=== PATIENT | male | born 1955 | race Caucasian/White ===

== ENCOUNTER 2020-12-05 16:49 | Inpatient (IN) | payer BC, SELFPAY ==
[2020-12-05 16:50] VITALS: BP 144/95; PULSE 88; RESP 18; TEMP 36.6; O2SAT 98; BMI 20.9
--- NOTE | 2020-12-05 18:11 | CM.ED ---
SOCIAL WORK Referral Source: Dr. Blily Reason for Consult: Substance abuse-requesting detox from suboxone, xanax, and ambien. Dr. Billy reports hospitalist reported unable to admit patient to [facility] as unable to detox patient from suboxone and xanax. Informed [facility] is able to detox from benzodiazepines. This worker called and confirmed with Amelia Jang and Treatment Navigator. Dr. Billy to discuss with hospitalist. Shobha Treatment Navigator updated on patient. Plan: Anticipate admission to [facility] Myrna Bob DIRECTOR SPEECH AND HEARING, CUSTOMS COMPLIANCE MANAGER
--- NOTE | 2020-12-05 18:31 | EDS_ITS ---
HPI History of Present Illness Chief Complaint: Substance Abuse Informant: patient and spouse/S.O. Narrative Narrative: Patient presents with requesting detox assistance. He has been trying to taper himself off of Suboxone. He also uses Xanax and Ambien. Nicholas cardona states he wants help with stopping all of these medications. He has been through detox multiple times in the past, most recent being 3 years ago. states that patient came home from work yesterday and went to bed with his suit still on from work. He did not get up all day today and missed work. When she got home this afternoon he was having visual hallucinations. He does seem to be improved now and is in agreement that he needs to get help and wants to get off of these medications. [facility] Medical History HTN (hypertension) Hypothyroid Opiate addiction Seizure Allergy/AdvReac Type Severity Reaction Status Date / Time No Known Allergies Allergy Verified 12/05/20 18:05 Surgical History (Updated 12/05/20 @ 18:03 by Daniel Bustos) History of appendectomy Social History Smoking Status: Unknown if ever smoked ROS ROS ED Constitutional Constitutional ED: Denies chills or fever(s) Eyes Eyes: Denies change in vision ENT ENT ED: Denies sore throat Cardiovascular Cardiovascular: Denies chest pain Respiratory/Chest Respiratory/Chest: Denies cough or dyspnea Gastrointestinal Gastrointestinal: Denies abdominal pain, diarrhea, nausea or vomiting Genitourinary Genitourinary ED: Denies dysuria Musculoskeletal Musculoskeletal: Denies back pain Integumentary Denies rash Neurologic Neurologic: Denies headache(s) or weakness Psychiatric Psychiatric: Reports anxiety; Denies depression Allergic/Immunologic Allergic/Immunologic ED: Denies urticaria EXAM Physical Exam Const Vital Signs: 12/05/20 16:50 Temperature 98 F Temperature Source Temporal Pulse Rate 88 Respiratory Rate 18 Blood Pressure 144/95 H Blood Pressure Mean 111 Pulse Ox 98 Oxygen Delivery Method Room Air Positive well nourished and well developed General Appearance ED: well developed HEENT Reports normocephalic and head/scalp atraumatic Eyes PERRL and EOMs intact bilaterally Neck supple Chest Wall inspection of chest normal and palpation of chest normal Resp normal respiratory effort and clear to auscultation bilaterally Cardio regular rate and regular rhythm GI normal to inspection, nondistended, normoactive bowel sounds Palpation: soft Back/Spine no CVA tenderness Extremity normal to inspection Neuro oriented x3 and no sensory deficits noted Sensorium / Orientation: alert Motor Exam: strength 5/5 throughout Psych mental status grossly normal Skin no rashes or lesions noted MDM MDM MDM Narrative Medical decision making narrative: Labs for AT addiction medicine are ordered. Lab Data Attestation: I reviewed the patient's lab results. Labs: Laboratory Results - last 24 hr 12/05/20 12/05/20 12/05/20 18:30 18:45 18:45 WBC 8.6 RBC 4.76 Hgb 14.2 Hct 42.8 MCV 89.9 MCH 29.8 MCHC 33.2 RDW Std Deviation 41.6 RDW Coeff of Victor Manuel 12.6 Plt Count 296 MPV 9.1 Immature Gran % (Auto) 0.400 Neut % (Auto) 70.7 H Lymph % (Auto) 17.9 L Whitley % (Auto) 10.3 H Eos % (Auto) 0.2 Baso % (Auto) 0.5 Absolute Neuts (auto) 6.1 Absolute Lymphs (auto) 1.53 Nucleated RBC % 0 Sodium 140 Potassium 3.5 Chloride 105 Carbon Dioxide 27.0 Anion Gap 8 BUN 11 Creatinine 1.06 Estim Creat Clear Calc 67.75 Est GFR (MDRD) Af Amer 90 Est GFR (MDRD) Non-Af 75 BUN/Creatinine Ratio 10.4 Glucose 96 Calcium 8.7 Total Bilirubin 0.50 AST 55 H ALT 20 Alkaline Phosphatase 179 H Total Protein 8.8 H Albumin 3.4 Globulin 5.4 H Albumin/Globulin Ratio 0.6 L Phenytoin 6.2 L Ethyl Alcohol 12/05/20 18:45 WBC RBC Hgb Hct MCV MCH MCHC RDW Std Deviation RDW Coeff of Victor Manuel Plt Count MPV Immature Gran % (Auto) Neut % (Auto) Lymph % (Auto) [place] % (Auto) Eos % (Auto) Baso % (Auto) Absolute Neuts (auto) Absolute Lymphs (auto) Nucleated RBC % Sodium Potassium Chloride Carbon Dioxide Anion Gap BUN Creatinine Estim Creat Clear Calc Est GFR (MDRD) Af Amer Est GFR (MDRD) Non-Af BUN/Creatinine Ratio Glucose Calcium Total Bilirubin AST ALT Alkaline Phosphatase Total Protein Albumin Globulin Albumin/Globulin Ratio Phenytoin Ethyl Alcohol 3.0 Treatment and Re-Evaluation Comments:: Lab work is largely unremarkable. Phenytoin level is low. Urine tox screen is still pending. I spoke with social work who confirmed with 180 as well as hospital administration that we were able to treat benzodiazepine withdrawal here as well as Suboxone detox. I will speak with the hospitalist. Discharge Plan Triage Chief Complaint: Substance Abuse ED Provider: Grace Billy Dx/Rx/DC Orders Clinical Impression: Desire for detoxification Primary Care Provider: Care Physician,No Primary Referrals: Care Physician,No Primary [Primary Care Provider] - Disposition Disposition: Acute Care Hospital [facility]
[2020-12-05 19:10] LABS: Absolute Lymphocyte Count 1.53 X10^3/uL (0.83-4.51); Absolute Neutrophil Count 6.1 X10^3/uL (2.0-7.7); Basophil# 0.04 X10^3/uL; Basophil% 0.5 % (0-1); Eosinophil# 0.02 X10^3/uL; Eosinophils% 0.2 % (0-5); Hematocrit 42.8 % (40-54); Hemoglobin 14.2 g/dL (13.0-16.5); Lymphocyte # 1.53 X10^3/ul (0.83-4.51); Lymphocyte % 17.9 % (19-41); Mean Corp Hgb Conc 33.2 g/dL (32-36); Mean Corpuscular Hgb 29.8 pg (27.0-32.0); Mean Corpuscular Volume 89.9 fL (80-94); Mean Platelet Vol. 9.1 fl (6.2-12.0); Monocyte# 0.88 X10^3/uL; Monocyte% 10.3 % (0-10); NRBC Flagged by Analyzer 0 % (0-5); Neutrophil # 6.05 X10^3/uL (2.7-7.7); Neutrophil % 70.7 % (47-70); Platelet Count 296 K/mm3 (150-450); RBC Distribution Width CV 12.6 % (11.6-14.6); RBC Distribution Width SD 41.6 fl (35.1-43.9); Red Blood Count 4.76 M/mm3 (4.6-6.2); White Blood Count 8.6 K/mm3 (4.4-11.0)
[2020-12-05 19:57] LABS: Phenytoin (Dilantin) Level 6.2 mL (10.0-20.0)
[2020-12-05 19:58] LABS: ALB/GLOB Ratio 0.6 RATIO (0.9-2.4); AST(SGOT) 55 U/L (15-37); Alanine Aminotransfer ALT/SGPT 20 U/L (16-61); Albumin, Serum 3.4 g/dL (3.2-5.0); Alkaline Phosphatase 179 U/L (45-117); Anion Gap 8 (5-15); BUN 11 mg/dL (7-18); BUN/Creat Ratio 10.4 RATIO (10-20); Calcium,Total 8.7 mg/dL (8.5-10.1); Chloride 105 mmol/L (98-107); Creatinine, Serum 1.06 mg/dL (0.70-1.30); EST Glomerular Filtration Rate 75 mL/min (>60); Est Glom Filt Rate - Afr Amer 90 mL/min (>60); Estimated Creatinine Clearance 67.75 ml/min; Globulin 5.4 g/dL (2.2-4.2); Glucose 96 mg/dL (74-106); Potassium 3.5 mmol/L (3.5-5.1); Protein, Total 8.8 g/dL (6.4-8.2); Sodium Level 140 mmol/L (136-145)
--- NOTE | 2020-12-05 20:42 | HP.PCM.HOS_ITS ---
HPI - General General Date of Admission: 12/05/20 Date of Service: 12/05/20 Chief Complaint: Desire for detoxification HPI Narrative SASHA MANCERA, is a 65 M with a significant history of polysubstance abuse who presents to the emergency department for help with drug detoxification. Patient reports that he snorts 2 mg of Suboxone twice a day; 2 mg of Xanax twice a day and 2 mg of Ambien twice a day. Last time he used this drug was on the morning of the day of presentation. Patient reported to emergency department in the evening of the day of presentation. Patient reports withdrawal symptoms of visual hallucination. Patient reported that he has been using each drug above for at least 10 years. [facility] Medical History HTN (hypertension) Hypothyroid Opiate addiction Seizure Allergy/AdvReac Type Severity Reaction Status Date / Time No Known Allergies Allergy Verified 12/05/20 18:05 Family History other other (Denies any maternal or paternal medical history) Surgical History (Updated 12/05/20 @ 18:03 by Daniel Bustos) History of appendectomy Surgical History unable to obtain unable to obtain (Patient states he has had some surgeries but is unable to recollect what kind of surgery he had.) Social History Smoking Status: Never smoker ROS ROS Narrative Constitutional: Denies fever, chills, fatigue, anorexia and change in weight Eyes: Denies blurry vision, change in eye color, change in vision, discharge from eye(s), double vision, erythema, eye pain, loss of vision or other HEENT: Denies abnormal hearing, dysphagia, ear pain, epistaxis, headache(s), hearing loss, nasal congestion, nasal discharge, post nasal drip, sinus pressure, sore throat or other Cardiovascular: Denies chest pain or palpitations. Denies dyspnea on exertion, orthopnea and paroxysmal nocturnal dyspnea Respiratory/Chest: Denies cough, excessive phlegm production, shortness of breath with exertion and wheezing Gastrointestinal: Denies abdominal pain, coffee ground emesis, constipation, diarrhea, dyspepsia, hematemesis, hematochezia, loose stools, melena, nausea, vomiting or other Genitourinary: Denies burning urination, difficulty urinating, dysuria, hematuria, nocturia, urinary frequency, urinary hesitancy, urinary incontinence, urinary urgency or other Musculoskeletal: Denies arthralgias, back pain, joint pain, joint stiffness, joint swelling, myalgias, neck pain or other Neurologic: Denies abnormal gait, abnormal speech, confusion, disequilibrium, dizziness, focal weakness, headache(s), numbness, paresthesias, seizure-like activity, seizures, syncope, tingling, tremor(s) or other Psychiatric: Denies anxiety, depression, homicidal ideation, suicidal ideation or other Endocrinology: Denies change in body appearance, cold intolerance, excessive sweating, heat intolerance, polydipsia, polyuria or other Hematologic/Lymphatic: Denies anemia, easy bleeding, easy bruising, lymphadenopathy or other Integumentary: Denies rashes Allergic/Immunologic: Denies rhinitis, hives, eczema, asthma or other Vital Signs Vital Signs Vital Signs: 12/05/20 16:50 Temperature 98 F Temperature Source Temporal Pulse Rate 88 Respiratory Rate 18 Blood Pressure 144/95 H Blood Pressure Mean 111 Pulse Ox 98 Oxygen Delivery Method Room Air Weight Weight: 68.039 kg Body Mass Index (BMI) 20.9 Physical Exam Narrative Physical exam: General: Well-nourished, well-developed. Head: Normocephalic, atraumatic, no tenderness Eyes: PERRLA, EOMI ENT, no trauma, moist mucous membranes, no rhinorrhea Neck: Nontender, full range of motion, no spinal tenderness, deformities, step- off CVS: Regular rate and rhythm. S1-S2 present. No murmur, gallop or rub. Respiratory : clear to auscultation bilaterally, chest wall nontender, no wheezing Abdomen: Soft, nontender, nondistended, normal bowel sounds, no masses : Deferred Back: Nontender, no CVA tenderness, no midline spinal tenderness, deformities, step-offs Extremities: Nontender full range of motion, no trauma Skin: Normal color, no trauma, abrasions Neuro: Alert, oriented, cranial nerves II through XII grossly intact. Psychiatry: Normal mood. Normal affect. Not depressed. Not anxious. Results Lab / Micro Data Result Diagrams: 12/05/20 18:45 12/05/20 18:45 Labs: Laboratory Results - last 24 hr 12/05/20 18:30: Phenytoin 6.2 L 12/05/20 18:45: WBC 8.6, RBC 4.76, Hgb 14.2, Hct 42.8, MCV 89.9, MCH 29.8, MCHC 33.2, RDW Std Deviation 41.6, RDW Coeff of Victor Manuel 12.6, Plt Count 296, MPV 9.1, Immature Gran % (Auto) 0.400, Neut % (Auto) 70.7 H, Lymph % (Auto) 17.9 L, [place] % (Auto) 10.3 H, Eos % (Auto) 0.2, Baso % (Auto) 0.5, Absolute Neuts (auto) 6.1, Absolute Lymphs (auto) 1.53, Nucleated RBC % 0 12/05/20 18:45: Sodium 140, Potassium 3.5, Chloride 105, Carbon Dioxide 27.0, Anion Gap 8, BUN 11, Creatinine 1.06, Estim Creat Clear Calc 67.75, Est GFR (MDRD) Af Amer 90, Est GFR (MDRD) Non-Af 75, BUN/Creatinine Ratio 10.4, Glucose 96, Calcium 8.7, Total Bilirubin 0.50, AST 55 H, ALT 20, Alkaline Phosphatase 179 H, Total Protein 8.8 H, Albumin 3.4, Globulin 5.4 H, Albumin/Globulin Ratio 0.6 L 12/05/20 18:45: Ethyl Alcohol 3.0 Assessment & Plan Assessment/Plan (1) Desire for detoxification: PLAN: Desire for detoxification Patient reports taking Subutex 2 mg twice a day; Xanax 2 mg twice a day and Ambien 2 mg twice a day. Doubts whether this is indeed the dosages he takes. Assuming patient is reporting accurately we will go of Subutex protocol and benzo protocol currently being used at a hospital and will start patient on Subutex 1 mg every 8 hours and Xanax 1 mg every 8 hours. Consider tapering as needed. Patient be started on Subutex and other adjunctive medications: Gabapentin as needed; dicyclomine as needed; Vistaril as needed; methocarbamol as needed; clonidine as needed; Imodium as needed; trazodone as needed and Zofran as needed. Monitor COWS and CINA score DVT prophylaxis Low risk Encourage to ambulate Charges/Coding Visit Charges Inpatient E&M: 89749 Init Hosp L2
[2020-12-05 21:02] VITALS: BP 144/95; PULSE 88; RESP 18; TEMP 36.6; O2SAT 98
[2020-12-05 21:03] VITALS: BP 147/99; PULSE 73; RESP 16; TEMP 36.6; O2SAT 99
[2020-12-05 21:37] VITALS: BMI 19.2
[2020-12-05 21:38] VITALS: BP 155/99; PULSE 66; RESP 16; TEMP 37.1; O2SAT 98
[2020-12-05 22:56] VITALS: BP 144/78; PULSE 77; RESP 18; TEMP 37.2; O2SAT 99
[2020-12-05] MEDS: ALPRAZolam 0.5 MG Tablet 1 MG PO (23:00)
[2020-12-05] MEDS: Buprenorphine HCl 2 MG TAB.SUBL 1 MG SL (23:00)
[2020-12-06] VITALS (25 sets, daily range): BP systolic 79–141; BP diastolic 57–91; PULSE 52–81; RESP 11–18; TEMP 36.4–37.2; O2SAT 94–100
[2020-12-06 03:02] LABS: Amphetamine Urine VISTA NEGATIVE (<1000 ng/mL); Barbiturate Urine VISTA NEGATIVE (< 200 ng/mL); Benzodiazepine Urine VISTA POSITIVE (< 200 ng/mL); Cocaine Urine VISTA NEGATIVE (< 300 ng/mL); Ecstacy Urine VISTA NEGATIVE (< 500 ng/mL); Methadone Urine VISTA NEGATIVE (< 300 ng/mL); PCP Urine VISTA NEGATIVE (< 25 ng/mL); THC Urine VISTA NEGATIVE (< 50 ng/mL); Vista UDS pH Range 7
[2020-12-06] MEDS: traZODone 100 MG Tablet PO ×2 (03:52→21:32)
[2020-12-06] MEDS: Levothyroxine 100 MCG Tablet PO (06:32)
[2020-12-06] MEDS: ALPRAZolam 0.5 MG Tablet 1 MG PO (06:32)
[2020-12-06] MEDS: Buprenorphine HCl 2 MG TAB.SUBL 1 MG SL (06:32)
[2020-12-06] MEDS: 0.9% Saline Lock 10 ML Syringe IV ×4 (06:42→15:51)
[2020-12-06] MEDS: Phenytoin Na 100 MG Capsule PO ×4 (08:28→21:31)
--- NOTE | 2020-12-06 08:40 | PCM.PN.HOSP ---
Subjective Subjective Follow-up on acute benzodiazepine withdrawal: 65-year-old male with past medical history of polysubstance abuse; patient admits to taking Suboxone, Xanax and Ambien. Patient was admitted last night with symptoms suggestive of benzodiazepine withdrawal. Patient's admission was reportedly approved by 180 as well as hospital administration without a discussion and approval from hospital medicine team. Patient was also started on Subutex 1 mg 3 times daily as well as Xanax 1 mg 3 times daily. Overnight, patient CIWA was elevated at 31 despite the above. Patient at that time told the nursing team that he lied to the ED and he takes about 10-12 mg of Xanax a day. He could not tell how much Ambien or Xanax he takes. He stated that he takes anything he can get to dull his mind. At the time of being seen, he admits to feeling foggy. He was transferred to ICU for closer monitoring Objective Data Objective Data Vital Signs: Vital Signs Temp Pulse Resp BP Pulse Ox 98.2 F 81 18 91/72 97 12/06/20 08:25 12/06/20 08:25 12/06/20 08:25 12/06/20 08:25 12/06/20 08:25 Oxygen Delivery Method Room Air Weight: 64.4 kg Body Mass Index (BMI) 19.2 Intake & Output: Intake and Output for Last 24 Hours 12/04/20 12/05/20 12/06/20 23:59 23:59 23:59 Intake Total 300 / 300 Output Total 200 / 200 Balance 100 / 100 Lab / Micro Data Result Diagrams: 12/05/20 18:45 12/05/20 18:45 Labs: Laboratory Results - last 24 hr 12/05/20 18:30: Phenytoin 6.2 L 12/05/20 18:45: WBC 8.6, RBC 4.76, Hgb 14.2, Hct 42.8, MCV 89.9, MCH 29.8, MCHC 33.2, RDW Std Deviation 41.6, RDW Coeff of Victor Manuel 12.6, Plt Count 296, MPV 9.1, Immature Gran % (Auto) 0.400, Neut % (Auto) 70.7 H, Lymph % (Auto) 17.9 L, [place] % (Auto) 10.3 H, Eos % (Auto) 0.2, Baso % (Auto) 0.5, Absolute Neuts (auto) 6.1, Absolute Lymphs (auto) 1.53, Nucleated RBC % 0 12/05/20 18:45: Sodium 140, Potassium 3.5, Chloride 105, Carbon Dioxide 27.0, Anion Gap 8, BUN 11, Creatinine 1.06, Estim Creat Clear Calc 67.75, Est GFR (MDRD) Af Amer 90, Est GFR (MDRD) Non-Af 75, BUN/Creatinine Ratio 10.4, Glucose 96, Calcium 8.7, Total Bilirubin 0.50, AST 55 H, ALT 20, Alkaline Phosphatase 179 H, Total Protein 8.8 H, Albumin 3.4, Globulin 5.4 H, Albumin/Globulin Ratio 0.6 L 12/05/20 18:45: Ethyl Alcohol 3.0 12/06/20 02:42: Urine Opiates Screen NEGATIVE, Urine Methadone Screen NEGATIVE, Ur Barbiturates Screen NEGATIVE, Ur Phencyclidine Scrn NEGATIVE, Ur Amphetamines Screen NEGATIVE, U Methamphetamin-MDMA NEGATIVE, U Benzodiazepines Scrn POSITIVE H, Urine Cocaine Screen NEGATIVE, U Cannabinoids Screen NEGATIVE, Ur Drug Screen Comment Physical Exam Narrative Physical exam: General: Alert, Oriented x3, Cooperative, cachectic, appears very anxious HEENT: Atraumatic Oral: Moist Mucosa Neck: Supple Lungs: Clear to auscultation Cardiovascular: HS I+II, regular, no murmurs Abdomen: Bowel Sounds Present, Soft, Non Tender Extremities: No edema Assessment & Plan Assessment/Plan (1) Desire for detoxification: PLAN: 1. Acute benzodiazepine withdrawal, patient with elevated CIWA scores Will stop Xanax scheduled doses Transferred earlier to ICU for closer monitoring; started on Precedex drip, workers' compensation hearings officer consulted Patient however did not tolerate Precedex and had bradycardia and hypotension Discussed with Dr. Das, would continue management with phenobarbital 2. Acute opioid/suboxone withdrawal Continue on Suboxone withdrawal protocol 3. Seizure disorder, on phenytoin Admitting phenytoin level was 6.2 On add loading dose of 1000 mg x 1, continue on phenytoin 100 qid Check phenytoin levels in a.m. 4. Rest of his chronic medical conditions including anxiety/depression/hypothyroidism remains stable Charges/Coding Visit Charges Inpatient E&M: 23736 Subs Hosp L3
[2020-12-06] MEDS: Escitalopram Oxalate 20 MG Tablet PO (10:22)
[2020-12-06] MEDS: Phenobarbital 32.4 MG Tablet 64.8 MG PO ×3 (13:44→21:31)
[2020-12-07] VITALS (12 sets, daily range): BP systolic 114–151; BP diastolic 76–96; PULSE 60–82; RESP 12–18; TEMP 36.6–37.1; O2SAT 95–100
[2020-12-07] MEDS: Phenobarbital 32.4 MG Tablet 64.8 MG PO ×6 (01:33→21:23)
[2020-12-07 05:01] LABS: Absolute Neutrophil Count 5.2 X10^3/uL (2.0-7.7); Basophil# 0.04 X10^3/uL; Basophil% 0.5 % (0-1); Eosinophil# 0.05 X10^3/uL; Eosinophils% 0.6 % (0-5); Hematocrit 40.6 % (40-54); Hemoglobin 13.5 g/dL (13.0-16.5); Lymphocyte % 21.5 % (19-41); Mean Corp Hgb Conc 33.3 g/dL (32-36); Mean Corpuscular Hgb 29.9 pg (27.0-32.0); Mean Corpuscular Volume 89.8 fL (80-94); Monocyte# 0.87 X10^3/uL; NRBC Flagged by Analyzer 0 % (0-5); Neutrophil # 5.24 X10^3/uL (2.7-7.7); Neutrophil % 66.1 % (47-70); Platelet Count 245 K/mm3 (150-450); RBC Distribution Width CV 12.7 % (11.6-14.6); RBC Distribution Width SD 41.8 fl (35.1-43.9); Red Blood Count 4.52 M/mm3 (4.6-6.2); White Blood Count 7.9 K/mm3 (4.4-11.0)
[2020-12-07 05:14] LABS: Phenytoin (Dilantin) Level 22.7 mL (10.0-20.0)
[2020-12-07 05:15] LABS: ALB/GLOB Ratio 0.6 RATIO (0.9-2.4); AST(SGOT) 58 U/L (15-37); Alanine Aminotransfer ALT/SGPT 20 U/L (16-61); Alkaline Phosphatase 156 U/L (45-117); Anion Gap 6 (5-15); BUN 10 mg/dL (7-18); BUN/Creat Ratio 11.1 RATIO (10-20); Calcium,Total 8.4 mg/dL (8.5-10.1); Chloride 106 mmol/L (98-107); EST Glomerular Filtration Rate 90 mL/min (>60); Est Glom Filt Rate - Afr Amer 109 mL/min (>60); Estimated Creatinine Clearance 75.53 ml/min; Globulin 4.9 g/dL (2.2-4.2); Glucose 82 mg/dL (74-106); Potassium 3.6 mmol/L (3.5-5.1); Protein, Total 7.9 g/dL (6.4-8.2); Sodium Level 139 mmol/L (136-145)
[2020-12-07] MEDS: Levothyroxine 100 MCG Tablet PO (06:06)
--- NOTE | 2020-12-07 06:39 | PN.HOSP_ITS ---
Subjective Subjective Follow-up on acute benzodiazepine withdrawal; Patient was seen overnight. Complains of lack of sleep. No acute events overnight. His CIWA scores are better. Objective Data Objective Data Vital Signs: Vital Signs Temp Pulse Resp BP Pulse Ox 97.9 F 62 15 148/93 H 99 12/07/20 00:00 12/07/20 04:00 12/07/20 04:00 12/07/20 04:00 12/07/20 04:00 Oxygen Delivery Method Room Air Weight: 63.9 kg Body Mass Index (BMI) 19.2 Intake & Output: Intake and Output for Last 24 Hours 12/05/20 12/06/20 12/07/20 23:59 23:59 23:59 Intake Total 1600.00 / 1606.00 Output Total 1675 / 1900 575 / 575 Balance -75.00 / -294.00 -563 / -563 Medical Nutrition Assessment Dietitian: Malnutrition Criteria Met Start: 12/06/20 15:15 Freq: Status: Active Protocol: Document 12/06/20 15:15 AG (Rec: 12/06/20 15:15 [id number]) Nutrition Malnutrition Evidence of Malnutrition Exists Yes Malnutrition (moderate): Social/Behavioral/ Environmental Evidenced By Suboptimal Energy Intake ( Moderate),Weight Loss ( Moderate) Clinical Problem Chronic Disease or Condition Related Malnutrition Etiology moderate malnutrition r/t inadequate energy intake d/t social/behavioral circumstances (substance abuse ) Signs/Symptoms as evidenced by estimated PO intake meeting <75% of estimated nutritional needs >3 months; unintentional wt loss 13#/8.3% wt loss x 3 months Status Active Problem Recommendation Dietitian Recommendations/Changes continue regular diet; will add 120mL ensure compact w/ meals for additional calories/ protein if consumed. Lab / Micro Data Result Diagrams: 12/07/20 04:40 12/07/20 04:40 Labs: Laboratory Results - last 24 hr 12/07/20 04:40: Phenytoin 22.7 H 12/07/20 04:40: WBC 7.9, RBC 4.52 L, Hgb 13.5, Hct 40.6, MCV 89.8, MCH 29.9, MCHC 33.3, RDW Std Deviation 41.8, RDW Coeff of Victor Manuel 12.7, Plt Count 245, MPV 9.0, Immature Gran % (Auto) 0.300, Neut % (Auto) 66.1, Lymph % (Auto) 21.5, [place] % (Auto) 11.0 H, Eos % (Auto) 0.6, Baso % (Auto) 0.5, Absolute Neuts (auto) 5.2, Absolute Lymphs (auto) 1.70, Nucleated RBC % 0 12/07/20 04:40: Sodium 139, Potassium 3.6, Chloride 106, Carbon Dioxide 27.0, Anion Gap 6, BUN 10, Creatinine 0.90, Estim Creat Clear Calc 75.53, Est GFR (MDRD) Af Amer 109, Est GFR (MDRD) Non-Af 90, BUN/Creatinine Ratio 11.1, Glucose 82, Calcium 8.4 L, Total Bilirubin 0.30, AST 58 H, ALT 20, Alkaline Phosphatase 156 H, Total Protein 7.9, Albumin 3.0 L, Globulin 4.9 H, Albumin/Globulin Ratio 0.6 L Physical Exam Narrative Physical exam: General: Alert, Oriented x3, Cooperative, cachectic, less anxious HEENT: Atraumatic Oral: Moist Mucosa Neck: Supple Lungs: Clear to auscultation Cardiovascular: HS I+II, regular, no murmurs Abdomen: Bowel Sounds Present, Soft, Non Tender Extremities: No edema Assessment & Plan Assessment/Plan (1) Desire for detoxification: PLAN: 65-year-old male with polysubstance use disorder who presents with acute benzo and opioid withdrawal 1. Acute benzodiazepine withdrawal, appears to be improving Patient reportedly takes 10 to 12 mg of Xanax Continue on phenobarbital taper Discussed with Dr. Das yesterday; will complete phenobarb taper, patient will require 2 weeks script of gabapentin 300mg tid. He should follow-up with her at discharge. 2. Acute opioid/suboxone withdrawal Continue on Suboxone withdrawal protocol 3. Seizure disorder, on phenytoin Admitting phenytoin level was 6.2 Patient got loaded with phenytoin and continued on home dose Recheck phenytoin levels in a.m. 4.Rest of his chronic medical conditions including anxiety/depression/hypothyroidism remains stable Charges/Coding Visit Charges Inpatient E&M: 18546 Subs Hosp L2
[2020-12-07] MEDS: Folic Acid 1 MG Tablet PO (07:49)
[2020-12-07] MEDS: Phenytoin Na 100 MG Capsule PO ×2 (07:49→21:23)
[2020-12-07] MEDS: hydroCHLOROthiazide 6.25mg TAB 6.25 MG PO (07:50)
[2020-12-07] MEDS: Escitalopram Oxalate 20 MG Tablet PO (07:50)
[2020-12-07] MEDS: Bisoprolol Fumarate 5 MG Tablet PO (10:22)
[2020-12-07] MEDS: Methocarbamol 750 MG Tablet 1500 MG PO (23:41)
[2020-12-07] MEDS: cloNIDine HCl 0.1 MG Tablet PO (23:41)
[2020-12-08] MEDS: Phenobarbital 32.4 MG Tablet 64.8 MG PO ×6 (01:51→21:08)
[2020-12-08] MEDS: hydrOXYzine PAM 25 MG Capsule 50 MG PO ×3 (02:50→21:08)
[2020-12-08 03:09] VITALS: BP 111/78; PULSE 61; RESP 16; TEMP 36.8; O2SAT 96
--- NOTE | 2020-12-08 03:11 | NURSING ---
patient asked to walk in hallway, SN Perez walked with patient. SN reported to this RN that patient c/o feeling dizzy while ambulating. Will continue to monitor.
[2020-12-08] MEDS: Levothyroxine 100 MCG Tablet PO (05:53)
[2020-12-08 06:17] VITALS: BP 101/67; BP 116/81; PULSE 61; PULSE 67; PULSE 76
[2020-12-08] MEDS: 0.9% Saline Lock 10 ML Syringe IV (06:30)
[2020-12-08] MEDS: 0.9% Normal Saline 1,000 ML 999 ML IV (06:30)
[2020-12-08 06:36] LABS: Phenytoin (Dilantin) Level 14.1 mL (10.0-20.0)
--- NOTE | 2020-12-08 08:03 | PCM.PN.HOSP ---
Subjective Subjective Patient is a 65-year-old gentleman with history of polysubstance abuse including Suboxone, Xanax, Ambien admitted with acute benzodiazepine withdrawal Objective Data Objective Data Vital Signs: Vital Signs Temp Pulse Resp BP Pulse Ox 98.3 F 61 16 116/81 H 96 12/08/20 03:09 12/08/20 06:17 12/08/20 03:09 12/08/20 06:17 12/08/20 03:09 Oxygen Delivery Method Room Air Weight: 63.7 kg Body Mass Index (BMI) 19.2 Intake & Output: Intake and Output for Last 24 Hours 12/06/20 12/07/20 12/08/20 23:59 23:59 23:59 Intake Total 1600.00 / 1606.00 Output Total 1675 / 1900 1300 / 1300 425 / 425 Balance -75.00 / -294.00 -1288 / -1288 -425 / -425 Medical Nutrition Assessment Dietitian: Malnutrition Criteria Met Start: 12/06/20 15:15 Freq: Status: Active Protocol: Document 12/06/20 15:15 AG (Rec: 12/06/20 15:15 [id number]) Nutrition Malnutrition Evidence of Malnutrition Exists Yes Malnutrition (moderate): Social/Behavioral/ Environmental Evidenced By Suboptimal Energy Intake ( Moderate),Weight Loss ( Moderate) Clinical Problem Chronic Disease or Condition Related Malnutrition Etiology moderate malnutrition r/t inadequate energy intake d/t social/behavioral circumstances (substance abuse ) Signs/Symptoms as evidenced by estimated PO intake meeting <75% of estimated nutritional needs >3 months; unintentional wt loss 13#/8.3% wt loss x 3 months Status Active Problem Recommendation Dietitian Recommendations/Changes continue regular diet; will add 120mL ensure compact w/ meals for additional calories/ protein if consumed. Lab / Micro Data Result Diagrams: 12/07/20 04:40 12/07/20 04:40 Labs: Laboratory Results - last 24 hr 12/08/20 04:50: Phenytoin 14.1 Physical Exam Narrative GENERAL: cooperative HEENT: Atraumatic; EYES; Anicteric, Normal Conjunctiva NECK; supple, normal thyroid, RESPIRATORY: Diminished to auscultation CARDIOVASCULAR: Regular S1 S2, GI: soft, normoactive bowel sounds, : No Renal angle tenderness; EXTREMITIES: No edema, no clubbing, MUSCULOSKELETAL: no muscle waisting NEURO: Awake; no lateralizing signs. SKIN: No Rash PSYCH; Flat affect Assessment & Plan Assessment/Plan (1) Desire for detoxification: PLAN: Patient is a 65-year-old gentleman with history of polysubstance abuse including Suboxone, Xanax, Ambien admitted with acute benzodiazepine withdrawal 1. Acute benzodiazepine withdrawal ?Patient has been admitted to regular nursing floor for medical stabilization using phenobarb taper. Plan is for patient to be observed for 5 days to complete a phenobarb taper. Patient will subsequently be discharged home with 2 weeks of gabapentin 300 mg 3 times daily and subsequent follow-up with Dr. Lovelace 2. Acute opioid withdrawal ?Patient is on Suboxone discontinued 3. Seizure disorder ?Patient is on phenytoin did continue 4. Hypertension - Blood pressure controlled, home medications continued with dose adjustment as needed 5. Hypothyroidism - Patient is on levothyroxine home dose continued 6. Depression with anxiety ?Currently on trazodone at night 7. Polysubstance abuse ?Counseled on cessation 8. DVT prophylaxis ?Deemed to be low risk did encourage early ambulation Charges/Coding Visit Charges Inpatient E&M: 12550 Subs Hosp L2
[2020-12-08 08:24] VITALS: BP 130/83; PULSE 68; RESP 14; TEMP 36.7; O2SAT 99
[2020-12-08] MEDS: Phenytoin Na 100 MG Capsule PO ×4 (08:27→22:02)
[2020-12-08] MEDS: Bisoprolol Fumarate 5 MG Tablet PO ×2 (08:27→08:34)
[2020-12-08] MEDS: Folic Acid 1 MG Tablet PO ×2 (08:27→08:35)
[2020-12-08] MEDS: hydroCHLOROthiazide 6.25mg TAB 6.25 MG PO ×2 (08:27→08:35)
[2020-12-08] MEDS: Escitalopram Oxalate 20 MG Tablet PO ×2 (08:28→08:34)
--- NOTE | 2020-12-08 09:52 | PCM.DC.SUM ---
Providers Date of Admission: 12/05/20 Primary Care Physician: Amy Primary Care Phys Reason For Visit: DESIRE FOR DETOXIFICATION Diagnosis Discharge Diagnosis (1) Desire for detoxification: Status: Acute Medications at Discharge Home Medications bisoprolol-hydrochlorothiazide 1 tab PO DAILY 12/05/20 buprenorphine-naloxone 1 film SUBLINGUAL DAILY 12/05/20 escitalopram oxalate 20 mg PO DAILY 12/05/20 latanoprost 1 drp OPHTHALMIC (EYE) BID PRN PRN 12/05/20 levothyroxine 100 mcg PO DAILY 12/05/20 phenytoin sodium extended 100 mg PO 4X/DAY 12/05/20 gabapentin 300 mg PO Q8 14 Days #42 cap 12/08/20 Medical Records Data Medical Nutrition Assessment Dietitian: Malnutrition Criteria Met Start: 12/06/20 15:15 Freq: Status: Active Protocol: Document 12/06/20 15:15 AG (Rec: 12/06/20 15:15 AG [id number]) Nutrition Malnutrition Evidence of Malnutrition Exists Yes Malnutrition (moderate): Social/Behavioral/ Environmental Evidenced By Suboptimal Energy Intake ( Moderate),Weight Loss ( Moderate) Clinical Problem Chronic Disease or Condition Related Malnutrition Etiology moderate malnutrition r/t inadequate energy intake d/t social/behavioral circumstances (substance abuse ) Signs/Symptoms as evidenced by estimated PO intake meeting <75% of estimated nutritional needs >3 months; unintentional wt loss 13#/8.3% wt loss x 3 months Status Active Problem Recommendation Dietitian Recommendations/Changes continue regular diet; will add 120mL ensure compact w/ meals for additional calories/ protein if consumed. Weight / BMI Weight Weight: 63.7 kg Body Mass Index (BMI) 19.2 ABG / Lab / Microbiology Data Result Diagrams: 12/07/20 04:40 12/07/20 04:40 Laboratory: Laboratory Results - last 24 hr 12/08/20 04:50: Phenytoin 14.1 Discharge Plan Admission Admit Date/Time: 12/05/20 20:36 Attending Provider: Tung Barnes Primary Care Provider: Care Physician,No Primary Discharge Orders/Prescriptions Prescriptions: New gabapentin 300 mg Capsule 300 mg PO Q8 14 Days Qty: 42 RF: 0 Continued latanoprost 0.005 % drops 1 drp ophthalmic (eye) BID PRN PRN (Reason: cataracts) RF: 0 bisoprolol-hydrochlorothiazide 5-6.25 mg tablet 1 tab PO DAILY RF: 0 phenytoin sodium extended 100 mg capsule 100 mg PO 4X/DAY RF: 0 levothyroxine 100 mcg tablet 100 mcg PO DAILY RF: 0 escitalopram oxalate 20 mg tablet 20 mg PO DAILY RF: 0 buprenorphine-naloxone 8-2 mg film 1 film sublingual DAILY RF: 0 Discontinued quetiapine 300 mg tablet 300 mg PO BID RF: 0 alprazolam 1 mg tablet 1 mg PO BID RF: 0 zolpidem 10 mg tablet 10 mg PO QHS RF: 0 Referrals / Follow Up: Care Physician,No Primary [Primary Care Provider] - Isabella Das DO [STAFF PHYSICIAN] - Disposition Disposition (needs filled in before D/C Order can be placed): Home, Self Care
[2020-12-08 14:25] VITALS: BP 123/85; PULSE 62; RESP 16; TEMP 36.9; O2SAT 98
[2020-12-08 20:50] VITALS: BP 136/88; PULSE 63; RESP 18; TEMP 37.1; O2SAT 96
[2020-12-08 22:51] VITALS: BP 142/81; PULSE 60
[2020-12-08] MEDS: cloNIDine HCl 0.1 MG Tablet PO (22:53)
[2020-12-08] MEDS: traZODone 100 MG Tablet PO (22:53)
--- NOTE | 2020-12-08 23:10 | PCS.PANDOC ---
PANDEMIC DOCUMENTATION INITIATED: Date: 12/05/2020 Time: 190
[2020-12-09 04:00] VITALS: BP 114/72; PULSE 77; RESP 16; TEMP 36.9; O2SAT 96
[2020-12-09] MEDS: Phenobarbital 32.4 MG Tablet 64.8 MG PO ×3 (04:04→14:48)
[2020-12-09] MEDS: hydrOXYzine PAM 25 MG Capsule 50 MG PO (05:19)
[2020-12-09] MEDS: Levothyroxine 100 MCG Tablet PO (05:19)
--- NOTE | 2020-12-09 07:14 | PN.HOSP_ITS ---
Subjective Subjective Since seen had a relatively uneventful night. Scheduled to complete phenobarb taper this afternoon. Objective Data Objective Data Vital Signs: Vital Signs Temp Pulse Resp BP Pulse Ox 98.4 F 77 16 114/72 96 12/09/20 04:00 12/09/20 04:00 12/09/20 04:00 12/09/20 04:00 12/09/20 04:00 Oxygen Delivery Method Room Air Weight: 63.3 kg Body Mass Index (BMI) 19.2 Intake & Output: Intake and Output for Last 24 Hours 12/07/20 12/08/20 12/09/20 23:59 23:59 23:59 Intake Total 1000 / 1000 Output Total 1300 / 1300 975 / 975 950 / 950 Balance -1288 / -1288 -950 / -950 Medical Nutrition Assessment Dietitian: Malnutrition Criteria Met Start: 12/06/20 15:15 Freq: Status: Active Protocol: Document 12/06/20 15:15 AG (Rec: 12/06/20 15:15 [id number]) Nutrition Malnutrition Evidence of Malnutrition Exists Yes Malnutrition (moderate): Social/Behavioral/ Environmental Evidenced By Suboptimal Energy Intake ( Moderate),Weight Loss ( Moderate) Clinical Problem Chronic Disease or Condition Related Malnutrition Etiology moderate malnutrition r/t inadequate energy intake d/t social/behavioral circumstances (substance abuse ) Signs/Symptoms as evidenced by estimated PO intake meeting <75% of estimated nutritional needs >3 months; unintentional wt loss 13#/8.3% wt loss x 3 months Status Active Problem Recommendation Dietitian Recommendations/Changes continue regular diet; will add 120mL ensure compact w/ meals for additional calories/ protein if consumed. Lab / Micro Data Result Diagrams: 12/09/20 06:50 12/09/20 06:50 Physical Exam Narrative GENERAL: cooperative HEENT: Atraumatic; EYES; Anicteric, Normal Conjunctiva NECK; supple, normal thyroid, RESPIRATORY: Diminished to auscultation CARDIOVASCULAR: Regular S1 S2, GI: soft, normoactive bowel sounds, : No Renal angle tenderness; EXTREMITIES: No edema, no clubbing, MUSCULOSKELETAL: no muscle waisting NEURO: Awake; no lateralizing signs. SKIN: No Rash PSYCH; Flat affect Assessment & Plan Assessment/Plan (1) Desire for detoxification: PLAN: Patient is a 65-year-old gentleman with history of polysubstance abuse including Suboxone, Xanax, Ambien admitted with acute benzodiazepine wi thdrawal 1. Acute benzodiazepine withdrawal ?Patient has been admitted to regular nursing floor for medical stabilization using phenobarb taper. Plan is for patient to be observed for 5 days to co mplete a phenobarb taper. Patient will subsequently be discharged home with 2 weeks of gabapentin 300 mg 3 times daily and subsequent follow-up with Dr. Das -12/09/2020 patient seen scheduled to complete phenobarb taper this afternoon 2. Acute opioid withdrawal ?Patient is on Suboxone discontinued 3. Seizure disorder ?Patient is on phenytoin did continue 4. Hypertension - Blood pressure controlled, home medications continued with dose adjustment as needed 5. Hypothyroidism - Patient is on levothyroxine home dose continued 6. Depression with anxiety ?Currently on trazodone at night 7. Polysubstance abuse ?Counseled on cessation 8. DVT prophylaxis ?Deemed to be low risk did encourage early ambulation 9. Physical deconditioning - Requested for PT OT eval and foster care social worker to assist with discharge planning Charges/Coding Visit Charges Inpatient E&M: 80189 Subs Hosp L2
[2020-12-09 07:29] LABS: Hematocrit 36.3 % (40-54); Hemoglobin 12.2 g/dL (13.0-16.5); Mean Corp Hgb Conc 33.6 g/dL (32-36); Mean Corpuscular Volume 89.2 fL (80-94); Mean Platelet Vol. 9.4 fl (6.2-12.0); Platelet Count 223 K/mm3 (150-450); RBC Distribution Width CV 12.7 % (11.6-14.6); RBC Distribution Width SD 41.5 fl (35.1-43.9); Red Blood Count 4.07 M/mm3 (4.6-6.2); White Blood Count 5.2 K/mm3 (4.4-11.0)
[2020-12-09 07:58] LABS: Anion Gap 6 (5-15); BUN 12 mg/dL (7-18); BUN/Creat Ratio 12.9 RATIO (10-20); Calcium,Total 8.4 mg/dL (8.5-10.1); Chloride 105 mmol/L (98-107); Creatinine, Serum 0.93 mg/dL (0.70-1.30); EST Glomerular Filtration Rate 87 mL/min (>60); Est Glom Filt Rate - Afr Amer 105 mL/min (>60); Estimated Creatinine Clearance 71.85 ml/min; Glucose 65 mg/dL (74-106); Magnesium 2.2 mg/dL (1.6-2.6); Potassium 3.5 mmol/L (3.5-5.1); Sodium Level 138 mmol/L (136-145)
[2020-12-09 08:04] VITALS: BP 120/88; PULSE 73; RESP 14; TEMP 37; O2SAT 96
[2020-12-09] MEDS: Gabapentin 300 MG Capsule PO (08:08)
[2020-12-09] MEDS: Phenytoin Na 100 MG Capsule PO ×2 (08:08→11:35)
--- NOTE | 2020-12-09 11:39 | DS.PCM_ITS ---
Providers Date of Admission: 12/05/20 Primary Care Physician: No Primary Care Phys Reason For Visit: DESIRE FOR DETOXIFICATION Diagnosis Discharge Diagnosis (1) Desire for detoxification: Status: Acute Medications at Discharge Home Medications bisoprolol-hydrochlorothiazide 1 tab PO DAILY 12/05/20 buprenorphine-naloxone 1 film SUBLINGUAL DAILY 12/05/20 escitalopram oxalate 20 mg PO DAILY 12/05/20 latanoprost 1 drp OPHTHALMIC (EYE) BID PRN PRN 12/05/20 levothyroxine 100 mcg PO DAILY 12/05/20 phenytoin sodium extended 100 mg PO 4X/DAY 12/05/20 gabapentin 300 mg PO Q8 14 Days #42 cap 12/08/20 Hospital Course Summary of Care Provided Minutes Spent on Discharge: 35 Hospital Course: Patient is a 65-year-old gentleman with history of polysubstance abuse including Suboxone, Xanax, Ambien admitted with acute benzodiazepine withdrawal 1. Acute benzodiazepine withdrawal ?Patient has been admitted to regular nursing floor for medical stabilization using phenobarb taper. Plan is for patient to be observed for 5 days to complete a phenobarb taper. Patient will subsequently be discharged home with 2 weeks of gabapentin 300 mg 3 times daily and subsequent follow-up with Dr. Das -12/09/2020 patient seen scheduled to complete phenobarb taper this afternoon 2. Acute opioid withdrawal ?Patient is on Suboxone discontinued 3. Seizure disorder ?Patient is on phenytoin did continue 4. Hypertension - Blood pressure controlled, home medications continued with dose adjustment as needed 5. Hypothyroidism - Patient is on levothyroxine home dose continued 6. Depression with anxiety ?Currently on trazodone at night 7. Polysubstance abuse ?Counseled on cessation 8. DVT prophylaxis ?Deemed to be low risk did encourage early ambulation 9. Physical deconditioning - Requested for PT OT eval and social science research assistant to assist with discharge planning Physical Exam Narrative GENERAL: cooperative HEENT: Atraumatic; EYES; Anicteric, Normal Conjunctiva NECK; supple, normal thyroid, RESPIRATORY: Diminished to auscultation CARDIOVASCULAR: Regular S1 S2, GI: soft, normoactive bowel sounds, : No Renal angle tenderness; EXTREMITIES: No edema, no clubbing, MUSCULOSKELETAL: no muscle waisting NEURO: Awake; no lateralizing signs. SKIN: No Rash PSYCH; Flat affect Medical Records Data Medical Nutrition Assessment Dietitian: Malnutrition Criteria Met Start: 12/06/20 15:15 Freq: Status: Active Protocol: Document 12/06/20 15:15 (Rec: 12/06/20 15:15 [id number]) Nutrition Malnutrition Evidence of Malnutrition Exists Yes Malnutrition (moderate): Social/Behavioral/ Environmental Evidenced By Suboptimal Energy Intake ( Moderate),Weight Loss ( Moderate) Clinical Problem Chronic Disease or Condition Related Malnutrition Etiology moderate malnutrition r/t inadequate energy intake d/t social/behavioral circumstances (substance abuse ) Signs/Symptoms as evidenced by estimated PO intake meeting <75% of estimated nutritional needs >3 months; unintentional wt loss 13#/8.3% wt loss x 3 months Status Active Problem Recommendation Dietitian Recommendations/Changes continue regular diet; will add 120mL ensure compact w/ meals for additional calories/ protein if consumed. Weight / BMI Weight Weight: 63.3 kg Body Mass Index (BMI) 19.2 ABG / Lab / Microbiology Data Result Diagrams: 12/09/20 06:50 12/09/20 06:50 Laboratory: Laboratory Results - last 24 hr 12/09/20 06:50: WBC 5.2, RBC 4.07 L, Hgb 12.2 L, Hct 36.3 L, MCV 89.2, MCH 30.0, MCHC 33.6, RDW Std Deviation 41.5, RDW Coeff of Victor Manuel 12.7, Plt Count 223, MPV 9.4 12/09/20 06:50: Sodium 138, Potassium 3.5, Chloride 105, Carbon Dioxide 27.0, Anion Gap 6, BUN 12, Creatinine 0.93, Estim Creat Clear Calc 71.85, Est GFR (MDRD) Af Amer 105, Est GFR (MDRD) Non-Af 87, BUN/Creatinine Ratio 12.9, Glucose 65 L, Calcium 8.4 L, Magnesium 2.2 D/C Instructions Discharge Diet: No restrictions Discharge Activity: Return to Normal Activity Call your doctor if you observe: Fever of 101 or Higher, Shortness of breath, Fainting spells and Chest pain Meaningful Use Info Meaningful Use Diagnoses (Choose all that apply): None applicable Discharge Plan Admission Admit Date/Time: 12/05/20 20:36 Attending Provider: Tung Barnes Primary Care Provider: Care Physician,No Primary Discharge Orders/Prescriptions Prescriptions: New gabapentin 300 mg Capsule 300 mg PO Q8 14 Days Qty: 42 RF: 0 Continued latanoprost 0.005 % drops 1 drp ophthalmic (eye) BID PRN PRN (Reason: cataracts) RF: 0 bisoprolol-hydrochlorothiazide 5-6.25 mg tablet 1 tab PO DAILY RF: 0 phenytoin sodium extended 100 mg capsule 100 mg PO 4X/DAY RF: 0 levothyroxine 100 mcg tablet 100 mcg PO DAILY RF: 0 escitalopram oxalate 20 mg tablet 20 mg PO DAILY RF: 0 buprenorphine-naloxone 8-2 mg film 1 film sublingual DAILY RF: 0 Discontinued quetiapine 300 mg tablet 300 mg PO BID RF: 0 alprazolam 1 mg tablet 1 mg PO BID RF: 0 zolpidem 10 mg tablet 10 mg PO QHS RF: 0 Referrals / Follow Up: Isabella Das DO [STAFF PHYSICIAN] - Care Physician,No Primary [Primary Care Provider] - Disposition Disposition (needs filled in before D/C Order can be placed): Home, Self Care Charges/Coding Visit Charges Inpatient E&M: 88098 Disch Hosp
--- NOTE | 2020-12-09 13:07 | NURSING ---
pt resting w/eyes closed. this nurse attempted to reach pts paris x2 per request of pt. left vm 1st time for her to call back.
[2020-12-09 14:00] VITALS: BP 132/79; PULSE 83; RESP 14; TEMP 36.9; O2SAT 98
--- NOTE | 2020-12-09 15:12 | CHAPLAIN ---
Type of Pastoral Visit _x__ Initial Visit ___ Follow-up Visit ___ On-call Visit ___ General Patient Visit ___ Spiritual Assessment ___ Family Conference ___ Bereavement ___ Rapid Response ___ Code Blue ___ Other (describe below) Pastoral Care Referral From ___ Patient ___ Family ___ Nurse ___ Physician ___ Intelligence Support Officer ___ Deburr Technician _x__ Other (describe below) Sacrament/Intervention _x__ Active listening ___ Anointing ___ Gnosticism ___ Bereavement ___ Communion _x__ Nereida exploration ___ _x__ Life review _x__ Prayer ___ Reconciliation ___ Sacrament of Sick _x__ Supportive presence ___ Wedding ___ Other (describe below) Pastoral Comments met this patient who had been walking in the hallway; pt was welcoming of visit; pt describes his use of drug and his multiple attempts to quit; pt has had some sobriety and states he is actively involved in AA; pt is also connected to a presybeterian and describes himself as a believer; pt states that he is well employed and functioning but also ashamed of what he is and that he has worries about his marriage/family; pt welcomes prayer and is open to conversation and visit of this relationship associate
== END 2020-12-09 15:45 | disposition home or self-care (01) | DRG 897 ==
LOC: ED 20:18 → MS3 21:09 → ICU 12-07 18:35 → MS3 12-08 07:19 → ICU 12-15 10:38
PROVIDERS: Internal Medicine; Internal Medicine Critical Care Medicine; Admitting Provider Hospitalist; Emergency Provider Emergency Medicine; Visit Provider Internal Medicine
DX: F13.239 Sedative, hypnotic or anxiolytic dependence with withdrawal, unspecified (principal); E44.0 Moderate protein-calorie malnutrition; F11.23 Opioid dependence with withdrawal; I10 Essential (primary) hypertension; G40.909 Epilepsy, unspecified, not intractable, without status epilepticus; E03.9 Hypothyroidism, unspecified; F32.A Depression, unspecified; F41.9 Anxiety disorder, unspecified; Z68.20 Body mass index [BMI] 20.0-20.9, adult; Z79.899 Other long term (current) drug therapy
CPT/HCPCS: 36415; 80048; 80053; 80185; 80307; 82077; 83735; 85025; 85027; 97162; 97166; 99284; J7030; J7040; 90686; A4216